=== PATIENT | female | born 1965 | race Caucasian/White ===

== ENCOUNTER 2021-01-19 16:32 | Inpatient (IN) | payer OTHER ==
[~2021-01-19] VITALS: Ht 154.9 cm; Wt 81.7 kg
[2021-01-19 17:35] LABS: Hematocrit 37.7 % (33.0-51.0); Hemoglobin 12.8 g/dL (11.5-16.0); Mean Corpuscular HGB 29.7 pg (26.0-34.0); Mean Corpuscular Volume 88 fL (80-100); Mean Platelet Volume 11.1 fL (9.1-12.4); Platelet Count 167 K/mm3 (150-400); RDW Coefficient Variation 12.6 % (11.7-14.2); RDW Standard Deviation 40.6 fL (35.1-46.3); Red Blood Cell Count 4.31 M/mm3 (3.80-5.20); White Blood Cell Count 7.14 K/mm3 (4.00-11.30)
[2021-01-19 17:44] LABS: Source, Urine Catheter
[2021-01-19 17:50] LABS: Appearance, Urine Clear (Clear); Bilirubin, Urine Neg (Neg); Blood, Urine Neg (Neg); Color, Urine Yellow (P-Yellow); Glucose Qualitative, Urine Neg (Neg); Ketones, Urine Neg (Neg); Leukocyte Esterase, Urine 1+ (Neg); Nitrite, Urine Neg (Neg); Protein, Urine 2+ (Neg); Specific Gravity, Urine 1.015 (1.003-1.022); Urobilinogen, Urine 1+ (Normal)
[2021-01-19 18:00] LABS: BAND PERCENT MAN 3 % (0-8); BASOPHILS PERCENT MAN 0 % (0-2); EOSINOPHILS PERCENT MAN 0 % (0-6); LYMPHOCYTES ABSOLUTE MAN 0.92 K/mm3 (0.84-5.20); LYMPHOCYTES PERCENT MAN 13 % (21-46); MONOCYTES ABSOLUTE MAN 0.42 K/mm3 (0.16-1.47); MONOCYTES PERCENT MAN 6 % (4-13); MYELOCYTE ABSOLUTE MAN 0.07 K/mm3 (0.00-0.00); MYELOCYTE PERCENT MAN 1 % (0-0); NEUTROPHILS ABSOLUTE MAN 5.49 K/mm3 (1.96-9.15); OTHER CELL PERCENT MAN 2 % (0-0); PLASMA CELL ABSOLUTE MAN 0.07 K/mm3 (0.00-0.00); PLASMA CELLS PERCENT MAN 1 % (0-0); SEG NEUTROPHILS PERCENT MAN 74 % (41-73); TOTAL CELLS COUNTED 100
[2021-01-19 18:01] LABS: Albumin, Blood 2.6 g/dL (3.4-5.0); Albumin/Globulin Ratio 0.6 (0.8-1.8); Bilirubin, Total 0.3 mg/dL (0.1-1.0); Bun/Creatinine Ratio 14.2 (12.0-20.0); Calcium, Blood 8.1 mg/dL (8.5-10.1); Creatinine, Blood 0.99 mg/dL (0.40-1.00); Globulin, Blood 4.6 g/dL (2.2-4.0); Potassium, Blood 3.7 mmol/L (3.5-5.5); Total Protein, Blood 7.2 g/dL (6.4-8.2)
[2021-01-19 18:10] LABS: Bacteria Mod /hpf; Red Blood Cells, Urine 0-2 /hpf (0-2); Squamous Epithelial Cells Few /hpf (Few)
[2021-01-19] MEDS ORDERED: LEVSOD100 PO (18:49)
[2021-01-20 01:15] LABS: PCO2 Arterial 39.4 mmHg (35-45); PO2 Arterial 54.5 mmHg (80-100); pH Blood Arterial 7.44 (7.35-7.45)
[2021-01-20 05:55] LABS: Alanine Aminotransfer (ALT/SGP 59 U/L (12-78); Albumin, Blood 2.4 g/dL (3.4-5.0); Albumin/Globulin Ratio 0.5 (0.8-1.8); Alk Phos 70 U/L (50-136); Anion Gap 8 mmol/L (6-16); Aspartate Aminotrans (AST/SGOT 98 U/L (12-37); Bilirubin, Total 0.3 mg/dL (0.1-1.0); Blood Urea Nitrogen 14 mg/dL (8-24); Bun/Creatinine Ratio 18.1 (12.0-20.0); CO2, Blood 27 mmol/L (21-32); Calcium, Blood 8.3 mg/dL (8.5-10.1); Chloride, Blood 102 mmol/L (98-108); Creatinine, Blood 0.78 mg/dL (0.40-1.00); Globulin, Blood 4.5 g/dL (2.2-4.0); Glomerular Filtration Rate >60 (60-); Glucose, Blood 152 mg/dL (70-99); Sodium, Blood 137 mmol/L (136-145); Thyroid Stimulating Hormone 0.476 uIU/mL (0.360-4.800); Total Protein, Blood 6.9 g/dL (6.4-8.2)
--- NOTE | 2021-01-20 06:35 | NUR ---
SHIFT SUMMARY PT ARRIVED TO MED UNIT AT 0000 FROM ER. SHE IS COVID + WITH BILAT PNEUMONIA SEEN ON CXR. UPON ARRIVAL SHE IS SATING AT 91% ON 15LPM VIA NON-REBREATHER MASK. RT EVALUATED AND PLACED PT ON HUMIDIFIED AIR, HIGH BUTCH NASAL CANNULA - 45LPM, FIO2 85. PALLIATIVE CARE CONSULT CALLED IN. LOVENOX FOR DVT PROPH. A&O X 4. PT IS ABLE TO TRANSFER FROM ER GURNEY TO BED, AND FROM BED TO BSC. SBA FOR SAFETY PT BECOMES LIGHT HEADED WITH ACTIVITY. WILL CONTINUE TO MONITOR AND GIVE REPORT TO ONCOMING NURSE.
--- NOTE | 2021-01-20 18:20 | NUR ---
SHIFT SUMMARY PT AxOx4. PLEASANT AND COOPERATIVE WITH CARE. PT COVID + WITH CURRENT TREATMENT INCLUDING REMDESIVIR INF, ORAL STEROIDS AND O2. PT CURRENTLY ON AIRVO 45LPM, FIO2 85 WITH CONT BIOX. PT WENT FOR PE STUDY TODAY. SBA TO BSC FOR DESATS. PT , SIGRID WAS UPDATED ON PATIENT'S STATUS AND PLAN VIA PHONE TODAY. PT CURRENTLY SITTING IN BED EATING DINNER. CALL LIGHT IN REACH. VITALS REVIEWED. PT DENIES ANY CURRENT NEEDS.
[2021-01-21 06:07] LABS: Alanine Aminotransfer (ALT/SGP 67 U/L (12-78); Albumin, Blood 2.4 g/dL (3.4-5.0); Albumin/Globulin Ratio 0.5 (0.8-1.8); Alk Phos 96 U/L (50-136); Anion Gap 6 mmol/L (6-16); Aspartate Aminotrans (AST/SGOT 83 U/L (12-37); Bilirubin, Total 0.3 mg/dL (0.1-1.0); Blood Urea Nitrogen 19 mg/dL (8-24); CO2, Blood 25 mmol/L (21-32); Calcium, Blood 7.7 mg/dL (8.5-10.1); Chloride, Blood 105 mmol/L (98-108); Creatinine, Blood 0.73 mg/dL (0.40-1.00); Globulin, Blood 4.4 g/dL (2.2-4.0); Glomerular Filtration Rate >60 (60-); Glucose, Blood 120 mg/dL (70-99); Potassium, Blood 3.9 mmol/L (3.5-5.5); Sodium, Blood 136 mmol/L (136-145); Total Protein, Blood 6.8 g/dL (6.4-8.2)
--- NOTE | 2021-01-21 06:46 | NUR ---
SHIFT SUMMARY NO ACUTE CHANGES THIS SHIFT, NO C/O ANY KIND, SLEPT T/O THE NIGHT, BEDRESTING AT THIS TIME, UPDATE GIVEN TO @ 0630. PT HAS CALL LIGHT IN REACH, WILL CONT TO MONITOR UNTIL REPORT GIVEN TO DAY RN.
--- NOTE | 2021-01-21 19:50 | NUR ---
SHIFT SUMMARY PT ON AIRVO AND PT HAS BEEN STABLE THROUGH DAY. FATIGUES QUICKLY WITH ACTIVITY BUT REPORTS RECOVERS QUICKLY. HELPING HANDS IN ROOM AND WALKED WITH PT AND DID START TO DESAT TO 88% AFTER GETTING BACK IN BED. REPORT GIVEN TO ONCOMING SHIFT.
--- NOTE | 2021-01-22 04:48 | NUR ---
SHIFT SUMMARY PT HAS RESTED MOST OF THE NIGHT. AIRVO IN PLACE, HEATED HIGH FLOW SETTING PER RT. PT OCCASIONALLY DESATS WITH EXERTION AND COUGHING. SATS DIPPING DOWN TO THE LOW 80'S. PT IS SLOW TO RECOVER BUT WITH DEEP BREATHING SATS RETURN TO THE 90'S GOING HIGH 98%. PT A/OX4 AND MAKES NEEDS KNOWN. BED IN LOWEST POSITION, CALL LIGHT WITHIN REACH.
--- NOTE | 2021-01-22 16:24 | NUR ---
SHIFT SUMMARY PATIENT MEDICATED FOR PAIN X1. PATIENT DENIES NAUSEA. PATIENT BECOMES VERY SHORT OF BREATH WITH ACTIVITY. PATIENT HAS BEEN PRONE MOST OF SHIFT. PATIENT DESATURATED TO 69% WHEN USING BEDPAN. PATIENT RECOVERED VERY SLOWLY. PATIENT PUT BACK IN PRONE POSITION AND SATURATING AT 91%. PATIENT REPORTS DECREASED APPETITE. PATIENT IS PLEASANT AND COOPERATIVE WITH CARE. , ESHA, CALLED FOR AN UPDATE. CONSENT GIVEN BY PATIENT TO GIVE UPDATE.
--- NOTE | 2021-01-23 04:45 | NUR ---
SHIFT SUMMARY PATIENT HAD NO ACUTE CHANGES OBSERVED. AXO 3 AND BEDREST. PRONE POSITION TO HELP MAINTAIN O2 STATS. ON AIRVO 55L O2. DESTATS WITH EXERTION DOWN INTO THE 70'S AND SLOWLY BACK TO 94% ON CONTINUOUS PULSE OXIMETRY. PIV REMAINS INTACT. TRAMADOL GIVEN FOR BACK PAIN. VSS/AFEBRILE. CALL LIGHT IN REACH. BED IN LOWEST POSITION. WILL CONTINUE TO MONITOR UNTIL DAY SHIFT NURSE ASSUMES CARE.
[2021-01-23 05:41] LABS: Hematocrit 39.1 % (33.0-51.0); Hemoglobin 12.9 g/dL (11.5-16.0); Mean Corpuscular HGB 29.1 pg (26.0-34.0); Mean Corpuscular Volume 88 fL (80-100); Mean Platelet Volume 9.8 fL (9.1-12.4); NRBC ABSOLUTE 0.03 K/mm3 (0.00-0.02); NRBC Auto 0.2 /100 WBC (0.0-0.2); Platelet Count 367 K/mm3 (150-400); RDW Coefficient Variation 12.7 % (11.7-14.2); RDW Standard Deviation 41.1 fL (35.1-46.3); Red Blood Cell Count 4.44 M/mm3 (3.80-5.20)
[2021-01-23 05:44] LABS: PCO2 Arterial 28.9 mmHg (35-45); PO2 Arterial 50.2 mmHg (80-100)
[2021-01-23 06:05] LABS: BAND PERCENT MAN 1 % (0-8); BASOPHILS PERCENT MAN 0 % (0-2); EOSINOPHILS PERCENT MAN 0 % (0-6); LYMPHOCYTES ABSOLUTE MAN 1.16 K/mm3 (0.84-5.20); LYMPHOCYTES PERCENT MAN 8 % (21-46); METAMYELOCYTE ABSOLUTE MAN 0.29 K/mm3 (0.00-0.00); METAMYELOCYTE PERCENT MAN 2 % (0-0); MONOCYTES ABSOLUTE MAN 0.58 K/mm3 (0.16-1.47); MONOCYTES PERCENT MAN 4 % (4-13); MYELOCYTE ABSOLUTE MAN 0.14 K/mm3 (0.00-0.00); MYELOCYTE PERCENT MAN 1 % (0-0); NEUTROPHILS ABSOLUTE MAN 12.41 K/mm3 (1.96-9.15); SEG NEUTROPHILS PERCENT MAN 84 % (41-73); TOTAL CELLS COUNTED 100
--- NOTE | 2021-01-23 17:40 | NUR ---
SHIFT SUMMARY POOR ACTIVITY TOLERANCE. O2 TITRATED UP THIS MORNING 60L/92% FIO2, WHILE USING BEDPAN, DUE TO DESAT TO 78% WITH RECOVERY TO 88% AT REST. UNABLE TO WEAN. POOR INTAKE. SATS IMPROVED AND WNL AFTER MORNING EPISODE. PRONES SELF INDEPENDENTLY AND FREQUENTLY.
--- NOTE | 2021-01-24 04:06 | NUR ---
SHIFT SUMMARY PATIENT HAD NO ACUTE CHANGES OBSERVED. AXOX 3 AND BEDREST. PIV REMAINS INTACT. ON AIRVO 60L STATING 90-92% RESTING. PRONE POSITION MOST EFFECTIVE FOR MAINTAINING O2 STATS. WILL DESTAT INTO THE 70'S WITH EXERTION AND SLOWLY RECOVER. LESS DESTATING EVENTS THIS SHIFT. DENIES PAIN AND N/V. VSS/AFEBILE. CALL LIGHT IN REACH. BED IN LOWEST POSITION. WILL CONTINUE TO MONITOR UNTIL DAY SHIFT NURSE ASSUMES CARE.
--- NOTE | 2021-01-24 04:36 | NUR ---
PATIENT REPORTS CARBAJAL FROM PRONE SLEEPING POSITION. TYLENOL 650 MG GIVEN PER EMAR. PATIENT CHANGES POSITION TO SUPINE FROM PRONE AND O2 STATS MAINTAINING 87-89%. CALL LIGHT IN REACH.
--- NOTE | 2021-01-24 18:20 | NUR ---
SHIFT SUMMARY TITRATED DOWN TO 55L 80% FROM 85% FIO2. TOLERATING UP TO BSC WITH DESATURATION TO ~86%, RAPID RECOVERY AT REST. "PLUGGED EARS" IMPROVED WITH SUDAFED. BACK PAIN CONTROLLED WITH TRAMADOL/TYLENOL. SELF PRONES INDEPENDENTLY. UP TO CHAIR TODAY, TOLERATED WELL, WITH SATS ELIAS 96% AT THAT TIME. ENCOURAGED TO SIT UP IN CHAIR MUCH OF THE DAY TOMORROW.
--- NOTE | 2021-01-25 04:37 | NUR ---
DELIVER DRIVER SUMMARY ADMITTED FOR HYPOXIA SECONDARY TO COVID-19. PT IS FULL CODE. PT HAS BEEN DESATURATING INTO THE LOW 80S WHEN UP TO THE COMMODE. PT STILL ON 55L AT 80% O2 ON THE AIRVO. PT MEDICATED X1 FOR CHRONIC BACK PAIN. NO OTHER CONCERNS THIS SHIFT. CALL LIGHT WITHIN REACH. ISOLATION MAINTAINED.
[2021-01-25 06:50] LABS: Hemoglobin 14.2 g/dL (11.5-16.0); Mean Corpuscular HGB 30.6 pg (26.0-34.0); Mean Corpuscular HGB Conc 33.8 g/dL (31.5-36.5); Mean Corpuscular Volume 91 fL (80-100); Mean Platelet Volume 9.8 fL (9.1-12.4); Platelet Count 410 K/mm3 (150-400); RDW Coefficient Variation 12.7 % (11.7-14.2); RDW Standard Deviation 41.5 fL (35.1-46.3); Red Blood Cell Count 4.64 M/mm3 (3.80-5.20); White Blood Cell Count 17.03 K/mm3 (4.00-11.30)
[2021-01-25 07:13] LABS: Anion Gap 7 mmol/L (6-16); Blood Urea Nitrogen 20 mg/dL (8-24); Bun/Creatinine Ratio 28.7 (12.0-20.0); CO2, Blood 24 mmol/L (21-32); Calcium, Blood 8.5 mg/dL (8.5-10.1); Chloride, Blood 104 mmol/L (98-108); Glomerular Filtration Rate >60 (60-); Glucose, Blood 70 mg/dL (70-99); Potassium, Blood 4.4 mmol/L (3.5-5.5); Sodium, Blood 135 mmol/L (136-145)
[2021-01-25 07:52] LABS: BAND PERCENT MAN 1 % (0-8); BASOPHILS PERCENT MAN 0 % (0-2); EOSINOPHILS ABSOLUTE MAN 0.17 K/mm3 (0.00-0.68); EOSINOPHILS PERCENT MAN 1 % (0-6); LYMPHOCYTES ABSOLUTE MAN 1.53 K/mm3 (0.84-5.20); LYMPHOCYTES PERCENT MAN 9 % (21-46); METAMYELOCYTE ABSOLUTE MAN 0.17 K/mm3 (0.00-0.00); METAMYELOCYTE PERCENT MAN 1 % (0-0); MONOCYTES ABSOLUTE MAN 1.02 K/mm3 (0.16-1.47); MONOCYTES PERCENT MAN 6 % (4-13); MYELOCYTE ABSOLUTE MAN 0.51 K/mm3 (0.00-0.00); MYELOCYTE PERCENT MAN 3 % (0-0); NEUTROPHILS ABSOLUTE MAN 13.62 K/mm3 (1.96-9.15); SEG NEUTROPHILS PERCENT MAN 79 % (41-73); TOTAL CELLS COUNTED 100
--- NOTE | 2021-01-25 19:29 | NUR ---
PT RESTING IN BED MAKING NO COMPLAINTS AT THIS TIME. PT CONTINUES TO DESAT WITH MOVEMENT. WORKED WITH PT THIS SHIFT. NO DECREASE IN O2 NEEDS NOTED. STAFF WILL CONTINUE TO MONITOR.
[2021-01-26 06:10] LABS: BASOPHILS PERCENT AUTO 1 % (0-2); EOSINOPHILS ABSOLUTE AUTO 0.35 K/mm3 (0.00-0.68); EOSINOPHILS PERCENT AUTO 3 % (0-6); Hematocrit 41.2 % (33.0-51.0); Hemoglobin 14.2 g/dL (11.5-16.0); IMMATURE GRAN ABSOLUTE AUTO 0.83 K/mm3 (0.00-0.10); IMMATURE GRAN PERCENT AUTO 6 % (0-1); LYMPHOCYTES ABSOLUTE AUTO 1.62 K/mm3 (0.84-5.20); LYMPHOCYTES PERCENT AUTO 12 % (21-46); MONOCYTES ABSOLUTE AUTO 0.56 K/mm3 (0.16-1.47); MONOCYTES PERCENT AUTO 4 % (4-13); Mean Corpuscular HGB 31.1 pg (26.0-34.0); Mean Corpuscular HGB Conc 34.5 g/dL (31.5-36.5); Mean Corpuscular Volume 90 fL (80-100); Mean Platelet Volume 9.7 fL (9.1-12.4); NEUTROPHILS ABSOLUTE AUTO 10.35 K/mm3 (1.96-9.15); NEUTROPHILS PERCENT AUTO 75 % (41-73); Platelet Count 389 K/mm3 (150-400); RDW Coefficient Variation 12.7 % (11.7-14.2); RDW Standard Deviation 40.9 fL (35.1-46.3); Red Blood Cell Count 4.57 M/mm3 (3.80-5.20); White Blood Cell Count 13.81 K/mm3 (4.00-11.30)
--- NOTE | 2021-01-26 06:32 | NUR ---
SHIFT SUMMARY ADMITTED FOR HYPOXIA DUE TO COVID-19. PT IS FULL CODE. PT CONTINUES TO BE ANXIOUS IN THE EARLY HOURS DUE TO FEELING CONGESTED. PT IS ON 15L BY HIGH FLOW CANNULA WITH SOME DESATURATION WHEN SITTING UP OR GETTING UP TO THE COMMODE. NO OTHER CONCERNS AT THIS TIME. ISOLATION MAINTAINED.
--- NOTE | 2021-01-26 18:52 | NUR ---
PT REMAINS ALERT AND ORIENTED X4, MAKES NO COMPLAINTS AND NO NEW O2 NEEDS THIS SHIFT. WORKED WITH PT. TIRES BUT RECOUPS FAST/WELL. STAFF WILL CONTINUE TO MONITOR.
--- NOTE | 2021-01-27 03:49 | NUR ---
PUFF IRONER SUMMARY ADMITTED FOR HYPOXIA SECONDARY TO COVID-19. PT IS FULL CODE. PT REMAINED ON 16L HIGH FLOW OXYGEN WITH SATURATION BETWEEN 85 AND 93% THROUGHOUT THE NIGHT. PT DESATS WHEN REPOSITIONING OR GETTING UP TO THE COMMODE. PT APPEARS INCREASINGLY TALKATIVE TODAY AND REPORTS FEELING "BETTER." MEDICATED WITH PRN TRAMADOL AT HS FOR CHRONIC BACK PAIN. NO OTHER CONCERNS AT THIS TIME. ISOLATION MAINTAINED. CALL LIGHT WITHIN REACH.
--- NOTE | 2021-01-27 19:59 | NUR ---
SUMMARY- PT A/O X4, INDEPENDANT BED TO CHAIR AND BATHROOM. OXYGEN STARTED TODAY HIGHFLOW 15L, SATS 99%, WEANED DOWN FIRST THING TO 10L. AND FINALLY DOWN TO 8L AROUND 1800, SATTING 94-96%. TOLERATING FOOD AND FLUID. AMBULATED AROUND THE ROOM TODAY WITH PT AND TOLERATING ACTIVITY WELL WITH MIN SOB. HOPING TO GO HOME TOMORROW.
[2021-01-28 06:06] LABS: BASOPHILS ABSOLUTE AUTO 0.09 K/mm3 (0.00-0.23); BASOPHILS PERCENT AUTO 1 % (0-2); EOSINOPHILS ABSOLUTE AUTO 0.17 K/mm3 (0.00-0.68); EOSINOPHILS PERCENT AUTO 2 % (0-6); Hematocrit 42.9 % (33.0-51.0); Hemoglobin 14.1 g/dL (11.5-16.0); IMMATURE GRAN ABSOLUTE AUTO 0.47 K/mm3 (0.00-0.10); IMMATURE GRAN PERCENT AUTO 5 % (0-1); LYMPHOCYTES ABSOLUTE AUTO 2.66 K/mm3 (0.84-5.20); LYMPHOCYTES PERCENT AUTO 26 % (21-46); MONOCYTES ABSOLUTE AUTO 0.66 K/mm3 (0.16-1.47); MONOCYTES PERCENT AUTO 6 % (4-13); Mean Corpuscular HGB 30.1 pg (26.0-34.0); Mean Corpuscular HGB Conc 32.9 g/dL (31.5-36.5); Mean Corpuscular Volume 92 fL (80-100); Mean Platelet Volume 9.2 fL (9.1-12.4); NEUTROPHILS ABSOLUTE AUTO 6.39 K/mm3 (1.96-9.15); NEUTROPHILS PERCENT AUTO 61 % (41-73); Platelet Count 387 K/mm3 (150-400); RDW Coefficient Variation 12.7 % (11.7-14.2); RDW Standard Deviation 42.2 fL (35.1-46.3); Red Blood Cell Count 4.68 M/mm3 (3.80-5.20); White Blood Cell Count 10.44 K/mm3 (4.00-11.30)
[2021-01-28 06:28] LABS: D-Dimer, Quantitative 2.22 mg/L FEU (0.00-0.52); International Normalized Ratio 1.02
--- NOTE | 2021-01-28 06:30 | NUR ---
SHIFT SUMMARY PAITENT ALERT AND ORIENTED. HAD NO COMPLAINTS OF PAIN OR SHORTNESS OF BREATH. NO ACUTE ISSUES NOTED OVERNIGHT. CALL LIGHT WITHIN REACH. REPORT GIVEN TO ONCOMING RN.
[2021-01-28 06:39] LABS: Alanine Aminotransfer (ALT/SGP 51 U/L (12-78); Albumin, Blood 2.7 g/dL (3.4-5.0); Albumin/Globulin Ratio 0.6 (0.8-1.8); Alk Phos 68 U/L (50-136); Anion Gap 6 mmol/L (6-16); Aspartate Aminotrans (AST/SGOT 26 U/L (12-37); Bilirubin, Total 0.4 mg/dL (0.1-1.0); Blood Urea Nitrogen 21 mg/dL (8-24); CO2, Blood 23 mmol/L (21-32); Calcium, Blood 8.2 mg/dL (8.5-10.1); Chloride, Blood 107 mmol/L (98-108); Creatinine, Blood 0.75 mg/dL (0.40-1.00); Globulin, Blood 4.8 g/dL (2.2-4.0); Glomerular Filtration Rate >60 (60-); Glucose, Blood 74 mg/dL (70-99); Potassium, Blood 4.2 mmol/L (3.5-5.5); Sodium, Blood 136 mmol/L (136-145); Total Protein, Blood 7.5 g/dL (6.4-8.2)
--- NOTE | 2021-01-28 11:59 | NUR ---
HOME O2 EVAL ON RA, SATS AT 87% AT REST. WITH AMBULATION: ON RA, SATS AT 85% 2L O2- SATS AT 85% 4L O2- SATS AT 88% 6L O2- SATS AT 89-90% 8L O2- SATS AT 91-92%
[2021-01-28] MEDS ORDERED: Acetaminophen650 M1 PO (12:55)
[2021-01-28] MEDS ORDERED: ASCORBIC ACID500 MG PO (12:56)
[2021-01-28] MEDS ORDERED: DEXA4 (13:01)
[2021-01-28] MEDS ORDERED: BENADRYL25 MG PO (13:03)
[2021-01-28] MEDS ORDERED: MELATONIN5 M1 PO (13:05)
[2021-01-28] MEDS ORDERED: ONDA4ODT MM (13:05)
[2021-01-28] MEDS ORDERED: GUAI600T33 PO (13:05)
[2021-01-28] MEDS ORDERED: PSEU120ER PO (13:06)
[2021-01-28] MEDS ORDERED: NASAL SPRAY88 ML (13:07)
[2021-01-28] MEDS ORDERED: TRAM50 PO (13:10)
[2021-01-28] MEDS ORDERED: VISBIOME 112.51 EACH PO (13:11)
[2021-01-28] MEDS ORDERED: ZINC220 PO (13:12)
[2021-01-28] MEDS ORDERED: VITAMIN D31000 UNI1 PO (13:12)
--- NOTE | 2021-01-28 14:54 | NUR ---
Spiritual Care visit provided. Pt is very anxious to be discharged. As we sat and visited about our spiritual journeys and lessons learned she was able to relax somewhat and enjoy our conversation. I prayed for her continuing recovery and she added that the time in the hospital had allowed for some deep thinking and conversation with God. She was hoping to make some significant changes once she is home again.
--- NOTE | 2021-01-28 15:58 | NUR ---
DISCHARGE DISCHARGE INSTRUCTIONS, MEDICATION LIST AND FOLLOW UP APPOINTMENTS REVIEWED WITH PT. QUESTIONS/CONCERNS ANSWERED. HARD COPY SCRIP FOR TRAMADOL GIVEN, PHYSICAN DECLINED TO SIGN (FMLA?) FORMS. PT ESCORTED OUT VIA W/C BY MIL
== END 2021-01-28 16:00 | disposition home or self-care (01) | DRG 177 ==
LOC: ER 16:32 → ERHOLD 19:00 → MEDS 19:00
PROVIDERS: Family Medicine; Nurse Practitioner Acute Care; Physician Assistant; ADMIT Internal Medicine
PROC: XW033E5 Introduction of Remdesivir Anti-infective into Peripheral Vein, Percutaneous Approach, New Technology Group 5 (ICD-10-PCS; principal; 2021-01-19)
PROC: 8E0ZXY6 Isolation (ICD-10-PCS; 2021-01-19)
PROC: 5A0945A Assistance with Respiratory Ventilation, 24-96 Consecutive Hours, High Flow/Velocity Cannula (ICD-10-PCS; 2021-01-19)
PROC: 3E0DX3Z Introduction of Anti-inflammatory into Mouth and Pharynx, External Approach (ICD-10-PCS; 2021-01-28)
DX: U07.1 COVID-19 (principal); J12.82 Pneumonia due to coronavirus disease 2019; J96.01 Acute respiratory failure with hypoxia; J15.9 Unspecified bacterial pneumonia; E87.1 Hypo-osmolality and hyponatremia; E03.9 Hypothyroidism, unspecified; R43.0 Anosmia; E88.09 Other disorders of plasma-protein metabolism, not elsewhere classified; E66.9 Obesity, unspecified; F41.9 Anxiety disorder, unspecified; R79.89 Other specified abnormal findings of blood chemistry; Z79.899 Other long term (current) drug therapy; Z88.2 Allergy status to sulfonamides; Z90.89 Acquired absence of other organs; Z68.34 Body mass index [BMI] 34.0-34.9, adult
CPT/HCPCS: 36415; 36600; 71045; 71260; 80048; 80053; 81001; 82803; 83605; 83880; 84145; 84443; 84484; 85025; 85379; 85610; 86140; 87040; 93005; 93010; 94760; 94761; 94762; 96365; 96375; 97110; 97161; 97530; 99285-25; A9270; J0696; J1100; J1650; J7030; J7050; Q9967

== ENCOUNTER → 2021-04-01 | Outpatient (CLI) | payer OTHER ==
[~2021-04-01] MED LIST: ASCORBIC ACID500 MG PO; Acetaminophen650 M1 PO; BENADRYL25 MG PO; DEXA4; GUAI600T33 PO; LEVSOD100 PO; MELATONIN5 M1 PO; NASAL SPRAY88 ML; ONDA4ODT MM; PSEU120ER PO; TRAM50 PO; VISBIOME 112.51 EACH PO; VITAMIN D31000 UNI1 PO; ZINC220 PO
[2021-04-02 13:10] LABS: HPV 16 Negative (Negative); HPV 18 Negative (Negative); HPV OTHER HR TYPES Negative (Negative)
== END | disposition home or self-care (01) ==
LOC: LAB SHORT 16:28 → LAB 16:28
PROVIDERS: Physician Assistant
DX: Z01.419 Encounter for gynecological examination (general) (routine) without abnormal findings (principal)
CPT/HCPCS: 87624; G0145